=== PATIENT | female | born 1975 | race African-American/Black ===

== ENCOUNTER 2017-01-07 21:30 | Emergency (ER) | payer MEDICAID ==
[~2017-01-07] VITALS: Ht 167.6 cm; Wt 61.7 kg
[2017-01-07 21:43] VITALS: BP 140/99
[2017-01-07] MEDS ORDERED: AMOXICILLIN500 MG ORAL (22:00)
[2017-01-07] MEDS ORDERED: Morphine Sulfate 4mg/ml Inj IM ONE (22:00)
[2017-01-07] MEDS ORDERED: NORCO 5-325 TA1 EACH ORAL (22:00)
[2017-01-07] MEDS ORDERED: DiphenhydrAMINE 50mg/ml Inj IM ONE (22:00)
[2017-01-07] MEDS ORDERED: Ketorolac 30mg Inj IM ONE (22:00)
[2017-01-07 22:04] VITALS: BP 140/99
[2017-01-08] MEDS ORDERED: PERCOCET 5-3251 EACH ORAL (00:16)
--- NOTE | 2017-01-08 03:43 | Emergency Room Report ---
History of Present Illness General Chief Complaint: Toothache Source: Patient Present Illness HPI 41-year-old female presents to ED complaining of tooth pain. States having tooth pain for last 2 days. Throbbing. 10 Out of 10. Nonradiating. No other aggravating or relieving factors. Denies any fevers or chills. States she has a scheduled appointment with the dentist in 3 days. Denies any other associated symptoms Allergies: Coded Allergies: No Known Allergies (Unverified , 01/07/17) Patient History Past Medical History: none Past Surgical History: none Pertinent Family History: none Social History: Denies: alcohol use, drug use, smoking Last Menstrual Period: 12/29/16 Now: No Immunizations: UTD Reviewed Nursing Documentation: PMH: Agreed, PSxH: Agreed Nursing Documentation-PMH Past Medical History: No Stated History Review of Systems All Other Systems: negative except mentioned in HPI Physical Exam Vital Signs Date Time Temp Pulse Resp B/P Pulse Ox O2 Delivery O2 Flow Rate FiO2 01/07/17 21:39 98.2 82 16 140/99 99 Room Air Sp02 EP Interpretation: reviewed, normal General Appearance: alert, GCS 15, non-toxic, mild distress Head: normocephalic Eyes: bilateral eye PERRL, bilateral eye normal inspection ENT: normal ENT inspection, other - poor dentition. cracked L lateral incisor Neck: normal inspection Respiratory: normal inspection Cardiovascular #1: normal inspection Gastrointestinal: normal inspection Rectal: deferred Genitourinary: no CVA tenderness Musculoskeletal: normal inspection Neurologic: alert, oriented x3, responsive, motor strength/tone normal, sensory intact, speech normal Psychiatric: normal inspection Skin: normal inspection Lymphatic: normal inspection Medical Decision Making Diagnostic Impression: Primary Impression: Toothache ER Course 41-year-old female presents ED complaining of tooth pain. differential - Cracked tooth, dental abscess, cavity Patient placed on stretcher. After initial history, physical exam reveals a female in mild distress. The lateral incisor shows a crack but there is no pulp exposed. No surrounding abscess. No induration or swelling. given morphine/toradol IM with pain improved Diagnosis- toothache Stable and discharged to home prescription for Percocet and amoxicillin. Instructed to see dentist as a walk-in this week. Return to ED if symptoms recur or worse Last Vital Signs Date Time Temp Pulse Resp B/P Pulse Ox O2 Delivery O2 Flow Rate FiO2 01/07/17 22:04 98.2 74 16 140/99 99 Room Air Status: improved Disposition: HOME, SELF-CARE Condition: Stable Scripts Oxycodone/Acetaminophen 5-325* (PERCOCET 5-325 MG TABLET*) 1 Each Tablet 1 TAB ORAL Q4H Y for For Pain, #12 TAB Prov: RUTH JEFFERSON M.D. 01/08/17 Amoxicillin* (AMOXIL*) 500 Mg Capsule 500 MG ORAL THREE TIMES A DAY, #21 CAP Prov: RUTH JEFFERSON M.D. 01/07/17 Referrals: NON PHYSICIAN (PCP) Patient Instructions: Dental Pain RUTH JEFFERSON M.D. Jan 08, 2017 03:43
== END 2017-01-07 22:04 | disposition home or self-care (01) ==
LOC: EMR 21:54
DX: K08.89 Other specified disorders of teeth and supporting structures (principal)
CPT/HCPCS: 96372; 99284; J1200; J1885; J2270

== ENCOUNTER 2017-01-10 21:51 | Emergency (ER) | payer MEDICAID ==
[~2017-01-10] VITALS: Ht 170.2 cm; Wt 62.1 kg
[~2017-01-10 21:51] MED LIST: AMOXICILLIN500 MG ORAL; NORCO 5-325 TA1 EACH ORAL; PERCOCET 5-3251 EACH ORAL
[2017-01-10 22:00] VITALS: BP 157/98
[2017-01-10] MEDS ORDERED: HYDROCODON-ACE1 EA15 ORAL (22:21)
--- NOTE | 2017-01-10 22:22 | Emergency Room Report ---
History of Present Illness General Chief Complaint: Toothache Source: Patient Present Illness HPI Is a 41-year-old female with no past medical history. She presents with chief complaint of dental pain. She was here 3 days ago for the same. She she said that she has appointment tomorrow with the dentist. Pain is 10 out of 10. His been ongoing for over a week. Denies any fever chills denies any swelling. Allergies: Coded Allergies: No Known Allergies (Unverified , 01/07/17) Patient History Past Medical History: see triage record, old chart reviewed Past Surgical History: other Pertinent Family History: none Social History: Denies: smoking Last Menstrual Period: 12/29/16 Now: No Immunizations: other Reviewed Nursing Documentation: PMH: Agreed, PSxH: Agreed Nursing Documentation-PMH Past Medical History: No Stated History Review of Systems Eye: Denies: blurred vision, eye pain ENT: Denies: ear pain, nose congestion, throat swelling Respiratory: Denies: cough, shortness of breath Cardiovascular: Denies: chest pain, palpitations Gastrointestinal: Denies: abdominal pain, diarrhea, nausea, vomiting Musculoskeletal: Denies: back pain, joint pain Skin: Denies: rash Neurological: Denies: headache, numbness Endocrine: Denies: increased thirst, increased urine Hematologic/Lymphatic: Denies: easy bruising All Other Systems: negative except mentioned in HPI Physical Exam Vital Signs Date Time Temp Pulse Resp B/P Pulse Ox O2 Delivery O2 Flow Rate FiO2 01/10/17 22:00 98.4 108 16 177/107 99 Room Air vitals normal except hypertension Sp02 EP Interpretation: reviewed, normal General Appearance: well appearing, no apparent distress, alert Head: normocephalic, atraumatic Eyes: bilateral eye EOMI, bilateral eye PERRL ENT: hearing grossly normal, normal pharynx, other - Oropharynx: Poor dentition. Left lower first premolar is decay. It is nearly broken off. No abscess noted. Neck: full range of motion, supple, no meningismus Respiratory: chest non-tender, lungs clear, normal breath sounds Cardiovascular #1: regular rate, rhythm, no murmur Gastrointestinal: normal bowel sounds, non tender, no mass, no organomegaly, no bruit, non-distended Musculoskeletal: back normal, gait/station normal, normal range of motion Psychiatric: mood/affect normal Skin: warm/dry Medical Decision Making Diagnostic Impression: Primary Impression: Toothache Additional Impression: Dental decay ER Course Patient present with dental decay and toothache. No abscess noted. She started on antibiotics. She'll probably need a root canal or extraction. She has appointment tomorrow. We'll discharge home. Last Vital Signs Date Time Temp Pulse Resp B/P Pulse Ox O2 Delivery O2 Flow Rate FiO2 01/10/17 22:00 98.4 108 16 177/107 99 Room Air Status: improved Disposition: HOME, SELF-CARE Condition: Stable Scripts Hydrocodone/Acetaminophen 5-325* (HYDROCODONE/ACETAMINOPHEN 5-325*) 1 Each Tablet 1 TAB ORAL Q6H Y for For Pain, #5 TAB 0 Refills Prov: CRIS PINEDA M.D. 01/10/17 Patient Instructions: Dental Pain Additional Instructions: See your dentist tomorrow. Return for swelling or fever. CRIS PINEDA M.D. Jan 10, 2017 22:22
[2017-01-10 22:35] VITALS: BP 177/107
== END 2017-01-10 22:36 | disposition home or self-care (01) ==
LOC: EMR 22:25
DX: K02.9 Dental caries, unspecified (principal)
CPT/HCPCS: 99283

== ENCOUNTER 2017-01-12 02:48 | Emergency (ER) | payer MEDICAID ==
[~2017-01-12] VITALS: Ht 167.6 cm; Wt 62.1 kg
[~2017-01-12 02:48] MED LIST changes: +HYDROCODON-ACE1 EA15 ORAL
[2017-01-12 03:00] VITALS: BP 161/106
[2017-01-12] MEDS ORDERED: PERCOCET 5-3251 EACH ORAL (03:17)
[2017-01-12 03:30] VITALS: BP 161/106
[2017-01-12] MEDS ORDERED: Oxycodone/Acetaminophen 5-325 ORAL ONE (03:30)
--- NOTE | 2017-01-12 03:42 | Emergency Room Report ---
History of Present Illness General Chief Complaint: Toothache Source: Patient Present Illness HPI 41 YO F with 3rd visit this week for toothache, left lower first premolar tooth. Patient completed antibiotics given by Dr Ramirez on first visit this week. Was scheduled dental appt today, states she went and was told the dentist had a in the family, and to come back tomorrow/. She ran out of home pain meds. Allergies: Coded Allergies: No Known Allergies (Unverified , 01/07/17) Patient History Past Medical History: none Past Surgical History: none Pertinent Family History: none Social History: Denies: alcohol use, drug use, smoking Last Menstrual Period: Dec Now: No Immunizations: UTD Reviewed Nursing Documentation: PMH: Agreed, PSxH: Agreed Nursing Documentation-PMH Past Medical History: No Stated History Review of Systems All Other Systems: negative except mentioned in HPI Physical Exam Vital Signs Date Time Temp Pulse Resp B/P Pulse Ox O2 Delivery O2 Flow Rate FiO2 01/12/17 02:54 97.9 86 18 161/106 100 Room Air Sp02 EP Interpretation: reviewed, normal General Appearance: normal inspection, well appearing, no apparent distress, alert, GCS 15, non-toxic Head: normocephalic, atraumatic Eyes: bilateral eye EOMI, bilateral eye PERRL ENT: normal ENT inspection, hearing grossly normal, normal voice, other - Left lower first premolar is fractured/broken, very ttp. No jermaine-apical abscess. Neck: normal inspection, full range of motion, supple, no bony tend Respiratory: normal inspection, lungs clear, normal breath sounds, no respiratory distress, no retraction, no wheezing Cardiovascular #1: regular rate, rhythm, no edema Gastrointestinal: normal inspection, normal bowel sounds, non tender, soft, no guarding, no hernia Genitourinary: no CVA tenderness Musculoskeletal: normal inspection, back normal, normal range of motion, Ping' s Sign negative Neurologic: normal inspection, alert, oriented x3, responsive, office analyst III-XII nml as tested, motor strength/tone normal, speech normal Psychiatric: normal inspection, judgement/insight normal, mood/affect normal Skin: normal inspection, normal color, no rash Lymphatic: normal inspection Medical Decision Making Diagnostic Impression: Primary Impression: Toothache ER Course 41 YO F with continued left lower premolar fractured tooth. VSS. Afebrile. PO analgesia provided and Rx for 2 more days of analgesia at home Encouraged patient to go to dentist appt today After third visit, I suspect drug-seeking behavior for this week but will give the patient the benefit of a doubt. However, a fourth visit should strongly raise suspicion for narcotic seeking behavior. Last Vital Signs Date Time Temp Pulse Resp B/P Pulse Ox O2 Delivery O2 Flow Rate FiO2 01/12/17 02:54 97.9 86 18 161/106 100 Room Air Status: improved Disposition: HOME, SELF-CARE Condition: Improved Scripts Oxycodone/Acetaminophen 5-325* (PERCOCET 5-325 MG TABLET*) 1 Each Tablet 1 TAB ORAL Q6H Y for For Pain, #6 TAB Prov: KELLY SOSA M.D. 01/12/17 Referrals: NOT CHOSEN [facility]/,REFERRING (PCP) Patient Instructions: Dental Pain KELLY SOSA M.D. Jan 12, 2017 03:42
== END 2017-01-12 03:30 | disposition home or self-care (01) ==
LOC: EMR 03:09
DX: K08.89 Other specified disorders of teeth and supporting structures (principal); S02.5XXA Fracture of tooth (traumatic), initial encounter for closed fracture; X58.XXXA Exposure to other specified factors, initial encounter; Y92.9 Unspecified place or not applicable
CPT/HCPCS: 99283

== ENCOUNTER 2017-02-03 20:10 | Emergency (ER) | payer MEDICAID, OTHER ==
[~2017-02-03] VITALS: Ht 162.6 cm; Wt 58.1 kg
--- NOTE | 2017-02-03 20:58 | Emergency Room Report ---
History of Present Illness General Chief Complaint: Toothache Source: Patient Present Illness HPI Patient presents with left lower molar pain. She was here several weeks ago and had an infected tooth. That was extracted. The dentist placed a crown that has come off on the tooth in front of the one was extracted. She's taking amoxicillin at this time. She doesn't have any pain medication at this time. She been using Orajel or something stronger. Denies any fevers. The tooth is sensitive to cold. Pain 9/10, constant, aching, radiates somewhat to her jaw. The patient denies any nausea vomiting diarrhea. She states she is not and has no dysuria. No facial swelling. Slight headache due to tooth. Allergies: Coded Allergies: No Known Allergies (Unverified , 01/07/17) Patient History Past Medical History: see triage record Social History: Denies: smoking Social History Narrative unemployed Last Menstrual Period: 01/25/2017 Now: No : 0 Para: 0 Nursing Documentation-PMH Past Medical History: No Stated History Review of Systems All Other Systems: negative except mentioned in HPI Physical Exam Vital Signs Date Time Temp Pulse Resp B/P Pulse Ox O2 Delivery O2 Flow Rate FiO2 02/03/17 20:32 98.4 127 16 155/97 99 Room Air General Appearance: well appearing, no apparent distress Head: normocephalic, atraumatic Eyes: bilateral eye PERRL, bilateral eye normal inspection ENT: hearing grossly normal, normal voice, other - L 2nd molar with crown removed by pateint. Area behind = extraction. No swelling. TTP. Neck: full range of motion, supple Respiratory: no respiratory distress, speaking full sentences Cardiovascular #2: 2+ radial (L) Gastrointestinal: normal inspection Musculoskeletal: digits/nails normal, gait/station normal, normal range of motion Neurologic: alert, normal gait, grossly normal Psychiatric: mood/affect normal Skin: no rash Medical Decision Making Diagnostic Impression: Primary Impression: Toothache Additional Impression: Possible opiate seeking behavior ER Course Patient presents with toothache. DDx: dental abscess, dental infection, loose crown with exposed nerve amongst others. Patient already on antibiotics. Patient states she can get a ride. Will treat with toradol. Still with significant pain. Percocet given. Improved with treatment. Patient stable for outpatient observation and treatment. 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 I advised that pharmacies should have medication. She admitted she had been driving after percocet. Advised this was unwise. I stated I believed she could fill the Rx. Last Vital Signs Date Time Temp Pulse Resp B/P Pulse Ox O2 Delivery O2 Flow Rate FiO2 02/03/17 21:47 114 16 145/93 100 Room Air 02/03/17 21:47 98.4 Status: improved Disposition: HOME, SELF-CARE Condition: Improved Scripts Hydrocodone Bit/Acetaminophen 5-325* (NORCO 5-325*) 1 Each Tablet 1 TAB ORAL Q6H Y for For Pain, #14 TAB 0 Refills Prov: Victoriano Rodriguez M.D. 02/03/17 Victoriano Rodriguez M.D. Feb 03, 2017 20:58
[2017-02-03] MEDS ORDERED: Oxycodone/Acetaminophen 5-325 ORAL ONE (21:00)
[2017-02-03] MEDS ORDERED: NORCO 5-325 TA1 EACH ORAL (21:32)
[2017-02-03 21:47] VITALS: BP 145/93
== END 2017-02-03 21:53 | disposition home or self-care (01) ==
LOC: EMR 20:35
DX: K08.89 Other specified disorders of teeth and supporting structures (principal); Z76.5 Malingerer [conscious simulation]
CPT/HCPCS: 99283

== ENCOUNTER 2017-02-06 23:35 | Emergency (ER) | payer OTHER ==
[~2017-02-06] VITALS: Ht 162.6 cm; Wt 62.6 kg
[2017-02-07] MEDS ORDERED: NKM (00:02)
[2017-02-07 00:10] VITALS: BP 156/100
--- NOTE | 2017-02-07 00:17 | Emergency Room Report ---
History of Present Illness General Chief Complaint: General Complaint Source: Patient Present Illness HPI Is a 41-year-old female who presents with chief complaint of tooth ache. She said that she had dental procedure done couple weeks ago. Her partial was loosened because of it. She said she was eating and it fell out and she swallowed it. She felt his off to vomit and vomited out. Now complaining of left lower jaw pain over the molar area. Denies any fever or chills. Pain is 10 out of 10. She claimed that she has an appointment with a dentist tomorrow. No other complaint. Allergies: Coded Allergies: No Known Allergies (Unverified , 01/07/17) Patient History Past Medical History: see triage record, old chart reviewed Past Surgical History: none Pertinent Family History: none Social History: Denies: smoking Last Menstrual Period: JANUARY 26 Now: No : 0 Para: 0 Immunizations: other Reviewed Nursing Documentation: PMH: Agreed, PSxH: Agreed Nursing Documentation-PM Past Medical History: No Stated History Review of Systems Eye: Denies: blurred vision, eye pain ENT: Denies: ear pain, nose congestion, throat swelling Respiratory: Denies: cough, shortness of breath Cardiovascular: Denies: chest pain, palpitations Gastrointestinal: Denies: abdominal pain, diarrhea, nausea, vomiting Musculoskeletal: Denies: back pain, joint pain Skin: Denies: rash Neurological: Denies: headache, numbness Endocrine: Denies: increased thirst, increased urine Hematologic/Lymphatic: Denies: easy bruising All Other Systems: negative except mentioned in HPI Physical Exam Vital Signs Date Time Temp Pulse Resp B/P Pulse Ox O2 Delivery O2 Flow Rate FiO2 02/06/17 23:57 98.2 102 18 156/100 100 Room Air vitals with hypertension Sp02 EP Interpretation: reviewed, normal General Appearance: well appearing, no apparent distress, alert Head: normocephalic, atraumatic Eyes: bilateral eye EOMI, bilateral eye PERRL ENT: hearing grossly normal, normal pharynx Neck: full range of motion, supple, no meningismus Respiratory: chest non-tender, lungs clear, normal breath sounds Cardiovascular #1: regular rate, rhythm, no murmur Gastrointestinal: normal bowel sounds, non tender, no mass, no organomegaly, no bruit, non-distended Musculoskeletal: back normal, gait/station normal, normal range of motion Psychiatric: mood/affect normal Skin: warm/dry Medical Decision Making Diagnostic Impression: Primary Impression: Toothache Additional Impressions: Drug-seeking behavior Opioid dependence Qualified Codes: F11.20 - Opioid dependence, uncomplicated ER Course This patient has been here with several times her ready for the same type of complaint. She always has left lower molar pain. There is no evidence of infection were irritation to the gum line or the tooth. She always has an appointment with a dentist in a day or 2. She is out of her pain medication. I suspect there is a drug-seeking behavior. Last time I saw her she refused dental injection. Patient refused Motrin I offered it. She can followup with a dentist tomorrow. Last Vital Signs Date Time Temp Pulse Resp B/P Pulse Ox O2 Delivery O2 Flow Rate FiO2 02/06/17 23:57 98.2 102 18 156/100 100 Room Air Status: improved Disposition: HOME, SELF-CARE Condition: Stable CRIS PINEDA M.D. Feb 07, 2017 00:17
== END 2017-02-07 | disposition home or self-care (01) ==
LOC: EMR 02-07 00:15
DX: K08.89 Other specified disorders of teeth and supporting structures (principal); Z76.5 Malingerer [conscious simulation]; F11.20 Opioid dependence, uncomplicated
CPT/HCPCS: 99282